=== PATIENT | male | born 1950 | race Caucasian/White ===

== ENCOUNTER 2017-08-17 05:57 | Inpatient (IN) | payer OTHER, MEDICARE ==
--- NOTE | 2017-08-17 06:06 | CPEKG ---
Heart Rate: 76 RR Interval: 789 P-R Interval: 140 QRSD Interval: 90 QT Interval: 376 QTC Interval: 423 P [place]: 15 QRS [place]: -6 T Wave [place]: 206 EKG Severity - ABNORMAL ECG - EKG Impression: SINUS RHYTHM EKG Impression: REPOL ABNRM SUGGESTS ISCHEMIA, DIFFUSE LEADS Electronically Signed By: Cece Macedo 19-Aug-2017 07:05:43
[2017-08-17 06:22] LABS: PLATELET COUNT 223 10^3/uL (150-400)
[2017-08-17] MEDS ORDERED: NITROGLYCERIN 0.4 MG BTL SL ONE (06:23)
--- NOTE | 2017-08-17 06:23 | EDPHY ---
H & P Stated Complaint: CP Time Seen by Provider: 08/17/17 06:05 HPI/ROS: HPI The patient presents with chest pain which has been present for the last 6 days which began after eating a Martha cheese steak at a movie theater. He felt as if it got stuck in his throat. He was out of town on vacation so did not seek medical care but his discomfort has been ongoing. He has throat discomfort as well as left arm aching pain which have been intermittent for the last 6 days. He did notice [place] he had dyspnea on exertion which is very unusual for him. He was unable to sleep last night very well because of this ongoing pain. The pain is worse when lying flat and improved when sitting up. His pain is present now though is mild. He has no prior history of similar. He has suffered from a stroke and is taking aspirin daily. He has hyperlipidemia.. REVIEW OF SYSTEMS Constitutional: No fever, no chills. Eyes: No discharge. ENT: No sore throat. Cardiovascular: Positive for chest pain, no palpitations. Respiratory: No cough, no shortness of breath. Gastrointestinal: No abdominal pain, no vomiting. Genitourinary: No hematuria. Musculoskeletal: No back pain. Skin: No rashes. Neurological: No headache. PMHx: Hyperlipidemia, history of CVA treated at [facility] Hx: Lives at home with his PHYSICAL General Appearance: Alert, no distress Eyes: Pupils equal and round no pallor or injection ENT, Mouth: Mucous membranes moist Respiratory: There are no retractions, lungs are clear to auscultation Cardiovascular: Regular rate and rhythm Gastrointestinal: Abdomen is soft and non-tender, no masses, bowel sounds normal Neurological: A&O, moves all extremities Skin: Warm and dry, no rashes Musculoskeletal: Neck is supple non tender Extremities: symmetrical, full range of motion Psychiatric: Patient is oriented X 3, there is no agitation Source: Patient - Personal History Current Tetanus Diphtheria and Acellular Pertussis (TDAP): Unsure - Medical/Surgical History Hx Asthma: No Hx Chronic Respiratory Disease: No Hx Diabetes: No Hx Cardiac Disease: No Hx Renal Disease: No Hx Cirrhosis: No Hx Alcoholism: No Hx HIV/AIDS: No Hx Splenectomy or Spleen Trauma: No Other PMH: CVA, hernia - Social History Smoking Status: Never smoked Constitutional: Initial Vital Signs Temperature (C) 36.6 C 08/17/17 05:59 Heart Rate 73 08/17/17 05:59 Respiratory Rate 16 08/17/17 05:59 Blood Pressure 147/95 H 08/17/17 05:59 O2 Sat (%) 96 08/17/17 05:59 O2 Delivery Mode Room Air Allergies/Adverse Reactions: No Known Allergies Allergy (Unverified 08/17/17 06:11) Home Medications: Medication Instructions Recorded Aspirin [Aspirin 325 mg (*)] 325 mg PO DAILY 08/17/17 Atorvastatin Calcium [Lipitor 40 40 mg PO DAILY 08/17/17 mg (*)] Multivitamins [Multivitamin (*)] 1 each PO DAILY 08/17/17 Medical Decision Making - Diagnostics EKG Interpretation: EKG #1: Complete interpretation has been separately recorded in the [facility] archive. Summary impression: ST segment elevation in AVR and V1 with reciprocal changes in all other leads, no old EKG for comparison EKG #2: Complete interpretation has been separately recorded in the [facility] [employer] archive. Summary impression: Improved ST segment elevations in AVR and V1 Imaging Results: Chest x-ray one view shows no infiltrate, no cardiomegaly, interpreted by me, radiology interpretation is pending. Differential Diagnosis: This is a 67-year-old male, history of hyperlipidemia and CVA who presents with 6 days of intermittent throat and left arm pain which seems to be getting progressively worse, making it difficult for him to sleep last night. He does have associated dyspnea with exertion. He has no prior history of similar pain. 6:10 a.m.- I met the patient in his room and obtained his history. EKG shows ST segment elevation in AVR and V1 which is concerning for left main disease. Because of these elevations I have paged Cardiology. I do not think we need to activate the director of laboratory operations at this time given he has had pain for the last 6 days. 6:26 a.m.- I spoke with Dr Ritchie, on-call cardiology interventionalist who recommends treatment with aspirin, beta-elmer, nitroglycerin. He does not believe the patient needs to go emergently to the director of laboratory operations. Patient's blood pressure is normal now, we will administer nitroglycerin currently. Patient has received aspirin prior to arrival. 7:00 a.m.- Dr. Ritchie came to evaluate the patient. EKG was repeated and demonstrates improved ST segment elevations currently. The patient will be admitted to the hospitalist service for further evaluation. We have started a heparin drip. Patient has metoprolol ordered. 7:25 a.m.- I discussed the case with Dr. Borden of the hospitalist service who will admit the patient. Plan is to keep the patient NPO for catheterization later today. Critical Care Time: CRITICAL CARE Critical care time spent by me, Dr. Macedo, exclusively with this patient was 30 minutes, exclusive of PA time and exclusive of procedures. The organ system at risk was cardiac and I gave antihypertensives, nitroglycerin, started a heparin drip and transfer the patient to the cardiac catheterization lab to prevent worsening of the patients condition. - Data Points Laboratory Results: Laboratory Results 08/17/17 06:06 08/17/17 06:06 Medications Given: Heparin Sodium (Porcine) (Heparin 50 Units/Ml (Premix)) 500 mls @ 0 mls/hr IV CONT NAYAN; Per Protocol PRN Reason: Protocol Stop: 02/13/18 10:59 Last Admin: 08/17/17 13:39 Dose: 500 mls Metoprolol Tartrate (Lopressor) 12.5 mg PO BID NAYAN Stop: 02/13/18 20:59 Last Admin: 08/17/17 21:01 Dose: 12.5 mg Discontinued Medications Aspirin Buffered (Aspirin Ec) 325 mg PO ONCALL ONE Stop: 08/17/17 07:52 Last Admin: 08/17/17 09:59 Dose: Not Given Chlorhexidine Gluconate (Hibiclens) 1 btl TP DAILY@2100 [facility] Stop: 08/17/17 21:01 Last Admin: 08/17/17 21:02 Dose: 1 mesha Diazepam (Valium) 5 mg PO ONCALL ONE Stop: 08/17/17 07:52 Last Admin: 08/17/17 09:59 Dose: Not Given Diphenhydramine HCl (Benadryl) 25 mg PO ONCALL ONE Stop: 08/17/17 07:52 Last Admin: 08/17/17 09:59 Dose: Not Given Famotidine (Pepcid) 20 mg PO ONCALL ONE Stop: 08/17/17 07:52 Last Admin: 08/17/17 10:00 Dose: Not Given Heparin Sodium (Porcine) (Heparin Injection) 5,000 unit IVP ONCE ONE Stop: 08/17/17 07:01 Last Admin: 08/17/17 07:08 Dose: 5,000 unit Heparin Sodium (Porcine) (Heparin Injection) 0 unit IVP ONCE ONE PRN Reason: Protocol Stop: 08/17/17 11:01 Last Admin: 08/17/17 13:26 Dose: 4,800 units Sodium Chloride (Ns) 1,000 mls @ 0 mls/hr IV ONCE ONE; Wide Open PRN Reason: Protocol Stop: 08/17/17 06:55 Last Admin: 08/17/17 07:08 Dose: 1,000 mls Metoprolol Tartrate (Lopressor Injection) 5 mg IVP EDNOW ONE Stop: 08/17/17 06:26 Last Admin: 08/17/17 07:01 Dose: Not Given Nitroglycerin (Nitrostat) 0.4 mg SL EDNOW ONE Stop: 08/17/17 06:24 Last Admin: 08/17/17 06:47 Dose: 0.4 mg Departure - Departure Disposition: To OP Cath/Surgery Clinical Impression: Acute coronary syndrome Chest pain Qualifiers: Chest pain type: unspecified Qualified Code(s): R07.9 - Chest pain, unspecified Condition: Fair
[2017-08-17] MEDS ORDERED: METOPROLOL TARTRATE 5 MG/5 ML INJ IVP ONE (06:25)
[2017-08-17] MEDS ORDERED: NS 1,000 ML IV ONE (06:54)
[2017-08-17] MEDS ORDERED: HEPARIN 10,000 UNIT/10 ML MDV (1,000 UNIT/ML) IVP ONE ×3 (07:00→11:00)
--- NOTE | 2017-08-17 07:00 | CPEKG ---
Heart Rate: 75 RR Interval: 800 P-R Interval: 140 QRSD Interval: 88 QT Interval: 388 QTC Interval: 434 P [place]: 14 QRS [place]: -17 T Wave [place]: 114 EKG Severity - OTHERWISE NORMAL ECG - EKG Impression: SINUS RHYTHM EKG Impression: BORDERLINE LEFT AXIS DEVIATION Electronically Signed By: Cece Macedo 18-Aug-2017 05:54:38
[2017-08-17] MEDS ORDERED: ONDANSETRON DISINTEGRATING 4 MG TAB PO PRN (07:27)
[2017-08-17] MEDS ORDERED: ONDANSETRON 4 MG/2 ML VIAL IVP PRN ×2 (07:27→09:08)
[2017-08-17] MEDS ORDERED: ACETAMINOPHEN 325 MG TAB PO PRN ×2 (07:27→07:51)
[2017-08-17] MEDS ORDERED: HEPARIN 10,000 UNIT/10 ML MDV (1,000 UNIT/ML) IVP PRN ×3 (07:29→11:00)
[2017-08-17] MEDS ORDERED: NITROGLYCERIN 0.4 MG BTL SL PRN ×3 (07:30→09:08)
[2017-08-17] MEDS ORDERED: HEPARIN/DEXTROSE 500 ML IV SCH ×3 (07:30→11:00)
[2017-08-17] MEDS ORDERED: LIDOCAINE 1% 300 MG/30 ML SDV ONE (07:31)
[2017-08-17] MEDS ORDERED: IOPAMIDOL (ISOVUE-370) 150 ML BTL IV ONE (07:32)
[2017-08-17] MEDS ORDERED: fentaNYL 100 MCG/2 ML INJ ONE (07:32)
[2017-08-17] MEDS ORDERED: MIDAZOLAM 2 MG/2 ML VIAL ONE (07:32)
[2017-08-17 07:40] LABS: INR 0.92 (0.83-1.16); PROTIME(PATIENT) 12.6 SEC (12.0-15.0)
--- NOTE | 2017-08-17 07:48 | PDGENHP ---
History and Physical - Chief Complaint Chest pain - History of Present Illness 67 yo M w/ HLD presents with chest pain. Patient woke up around midnight with central chest pressure. He describes this as mild to moderate with occasional radiation down his left arm. He states at times he felt like he was being strangled. He last had similar pain 1 week ago but none prior to that. He takes an ASA and statin daily for HLD. In the ED his initial ECG was concerning for ongoing ischemia. He was started on heparin and given NTG with improvement in his ECG. He is being admitted with plan for urgent cardiac cath. History Information - Allergies/Home Medication List Allergies/Adverse Reactions: No Known Allergies Allergy (Unverified 08/17/17 06:11) Home Medications: Aspirin 08/17/17 [Last Taken Unknown] Simvastatin 08/17/17 [Last Taken Unknown] I have personally reviewed and updated: family history, medical history - Past Medical History hyperlipidemia - Family History Positive for: CAD - Social History Smoking Status: Former smoker (~10 pack years) Review of Systems Review of Systems: ROS: 10pt was reviewed & negative except for what was stated in HPI & below Physical Exam Physical Exam: Temp Pulse Resp BP Pulse Ox 36.6 C 79 16 114/71 95 08/17/17 05:59 08/17/17 07:12 08/17/17 07:12 08/17/17 07:12 08/17/17 07:12 Constitutional: no apparent distress, not in pain Eyes: PERRL, EOMI Ears, Nose, Mouth, Throat: moist mucous membranes, no oral mucosal ulcers Cardiovascular: regular rate and rhythym, no murmur, rub, or gallop Respiratory: no respiratory distress, clear to auscultation Gastrointestinal: normoactive bowel sounds, soft, non-tender abdomen Skin: warm, normal color Musculoskeletal: full muscle strength, no muscle tenderness Neurologic: AAOx3, CN II-XII Intact Psychiatric: interacting appropriately, not anxious Lab Data & Imaging Review 08/17/17 06:06 08/17/17 06:06 WBC 7.99 10^3/uL (3.80-9.50) 08/17/17 06:06 RBC 4.81 10^6/uL (4.40-6.38) 08/17/17 06:06 Hgb 15.0 g/dL (13.7-17.5) 08/17/17 06:06 Hct 43.1 % (40.0-51.0) 08/17/17 06:06 MCV 89.6 fL (81.5-99.8) 08/17/17 06:06 MCH 31.2 pg (27.9-34.1) 08/17/17 06:06 MCHC 34.8 g/dL (32.4-36.7) 08/17/17 06:06 RDW 13.2 % (11.5-15.2) 08/17/17 06:06 Plt Count 223 10^3/uL (150-400) 08/17/17 06:06 MPV 9.5 fL (8.7-11.7) 08/17/17 06:06 Neut % (Auto) 58.7 % (39.3-74.2) 08/17/17 06:06 Lymph % (Auto) 24.5 % (15.0-45.0) 08/17/17 06:06 [place] % (Auto) 9.8 % (4.5-13.0) 08/17/17 06:06 Eos % (Auto) 5.6 % (0.6-7.6) 08/17/17 06:06 Baso % (Auto) 1.0 % (0.3-1.7) 08/17/17 06:06 Nucleat RBC Rel Count 0.0 % (0.0-0.2) 08/17/17 06:06 Absolute Neuts (auto) 4.69 10^3/uL (1.70-6.50) 08/17/17 06:06 Absolute Lymphs (auto) 1.96 10^3/uL (1.00-3.00) 08/17/17 06:06 Absolute Monos (auto) 0.78 10^3/uL (0.30-0.80) 08/17/17 06:06 Absolute Eos (auto) 0.45 10^3/uL (0.03-0.40) H 08/17/17 06:06 Absolute Basos (auto) 0.08 10^3/uL (0.02-0.10) 08/17/17 06:06 Absolute Nucleated RBC 0.00 10^3/uL (0-0.01) 08/17/17 06:06 Immature Gran % 0.4 % (0.0-1.1) 08/17/17 06:06 Immature Gran # 0.03 10^3/uL (0.00-0.10) 08/17/17 06:06 PT 12.6 SEC (12.0-15.0) 08/17/17 06:06 INR 0.92 (0.83-1.16) 08/17/17 06:06 APTT 28.2 SEC (23.0-38.0) 08/17/17 06:06 D-Dimer 0.28 ug/mLFEU (0.00-0.50) 08/17/17 06:06 Sodium 143 mEq/L (135-145) 08/17/17 06:06 Potassium 4.1 mEq/L (3.5-5.2) 08/17/17 06:06 Chloride 107 mEq/L (97-110) 08/17/17 06:06 Carbon Dioxide 24 mEq/l (22-31) 08/17/17 06:06 Anion Gap 12 mEq/L (8-16) 08/17/17 06:06 BUN 22 mg/dL (7-23) 08/17/17 06:06 Creatinine 0.9 mg/dL (0.7-1.3) 08/17/17 06:06 Estimated GFR > 60 08/17/17 06:06 Glucose 95 mg/dL (70-100) 08/17/17 06:06 Calcium 9.2 mg/dL (8.5-10.4) 08/17/17 06:06 Total Bilirubin 0.5 mg/dL (0.1-1.4) 08/17/17 06:06 AST 40 IU/L (17-59) 08/17/17 06:06 ALT 52 IU/L (21-72) 08/17/17 06:06 Alkaline Phosphatase 60 IU/L (38-126) 08/17/17 06:06 Troponin I 0.236 ng/mL (0.000-0.034) H 08/17/17 06:06 Total Protein 7.1 g/dL (6.3-8.2) 08/17/17 06:06 Albumin 4.0 g/dL (3.5-5.0) 08/17/17 06:06 Visualized and Interpreted Chest x-ray results: Yes Chest X-Ray results: no infiltrate Visualized and Interpreted EKG results: Yes EKG Interpretation: Positive for: other (GOGO's in V1 and AVR with STD's in lateral and inferior leads. Improved on subsequent ECG.) Assessment & Plan Assessment: 67 yo M w/ HLD presents with ACS. Plan: 1. ACS - With ST elevations in V1 and AVR on arrival in ED but not quite meeting STEMI criteria; these ST changes improved on subsequent ECG after heparin and Nitro. He is currently chest pain free. Troponin of 0.2 on arrival. - Admit to ICU - S/p ASA 325 mg and metoprolol 5 mg IV - Cardiology aware, likely to label fuser tender later today; maintain NPO - Monitor on telemetry, trend cardiac enzymes - Heparin gtt - Nitro PRN - STAT Echo performed 2. HLD - Continue statin, will need increase in intensity. Diet - NPO Code - Full Ppx - Heparin gtt Dispo - Admit as inpatient noting ACS
[2017-08-17] MEDS ORDERED: FAMOTIDINE 20 MG TAB PO ONE (07:51)
[2017-08-17] MEDS ORDERED: DIAZEPAM 5 MG TAB PO ONE (07:51)
[2017-08-17] MEDS ORDERED: diphenhydrAMINE 25 MG CAP PO ONE (07:51)
[2017-08-17] MEDS ORDERED: TEMAZEPAM 15 MG CAP PO PRN (07:51)
[2017-08-17] MEDS ORDERED: ASPIRIN EC 325 MG TAB PO ONE (07:51)
--- NOTE | 2017-08-17 07:53 | PDHPUP ---
History & Physical Update H&P update statement: This history and physical update is based on an assessment of the patient which was completed after admission or registration (within 24 hours), but prior to the surgery/procedure. H&P update: H&P reviewed & patient examined, no change in patient's condition since H&P completed
--- NOTE | 2017-08-17 07:53 | PDPROPOC ---
Sedation Plan of Care Sedation Plan of Care: mental status noted, patient educated of risks, benefits , alternatives, patient can tolerate sedation ASA Classification: ASA 2 Planned drugs: midazolam Mallampati Score: Class 2 Mallampati Reference Image: Patient passed 3-3-2 rule?: Yes
--- NOTE | 2017-08-17 08:11 | GCON ---
[f rep st] CONSULTATION CARDIOLOGY CONSULTATION CHIEF COMPLAINT: Chest pain. HISTORY OF PRESENT ILLNESS: This is a 67-year-old male with history of ischemic stroke, hyperlipidem ia, who [facility] with complaints of chest pain that has been going on intermittently for 5-6 days. The patient indicates he had a Martha sub apparently 6 days ago and aft er that started having throat pain and left arm pain. The pain would come on and off over the last 5 -6 days, but came on this morning early necessitating a trip to the emergency room. The patient was transported by his . Upon arrival to the emergency room, the patient had diffuse ST depressions and mild ST elevations in AVR and V1. After 1 sublingual nitroglycerin, the patient's ST segments no rmalized with only minimal depression in 1 and aVL. The patient actually felt much better after the nitroglycerin, and his blood pressure and heart rate have been stable. His troponin, however, did co me back at 0.29. Currently, the patient is resting quietly. Denies any active discomfort. Blood pr essure, heart rates stable. PAST MEDICAL HISTORY: Significant for ischemic stroke, hyperlipidemia. HOME MEDICATIONS: Consist of aspirin. SOCIAL HISTORY: Patient is . Occasional alcohol use. No smoking. FAMILY HISTORY: Noncontributory. REVIEW OF SYSTEMS: Patient denies any vision changes. No headache. No palpitations. No current ch est pain. No current shortness of breath. No abdominal pain. No jaw pain. No lower extremity pain . PHYSICAL EXAM: VITAL SIGNS: Patient afebrile 98.6, blood pressure 120/70, the heart rate 72, respir ations 12, sat 95% on room air. HEENT: Pupils equal, reactive to light and accommodation. Extraocu lar movements intact. CARDIOVASCULAR: Regular rate and rhythm. S1, S2. LUNGS: Clear to auscultat ion bilaterally. ABDOMEN: Soft, tender, no guarding. EXTREMITIES: No clubbing, no cyanosis, no ed giovanny. NEUROLOGIC: The patient is alert and oriented x3. LABORATORY VALUES: Currently show white cells 7.9, hemoglobin 15, platelet count of 223. INR of 0.9 2. D-dimer 0.28. Sodium 143, creatinine 0.9, troponin 0.23. ASSESSMENT/PLAN: Chest pain: At this time, the patient's symptoms have resolved. His ECG has cori lized with 1 sublingual nitroglycerin. Despite this, his troponin had been elevated at 0.29, and giv en the patient's history of ischemic stroke, his gender and age, I do feel that his pretest probabili ty is quite high for underlying coronary artery disease. I have explained this to the patient and hi s that most likely we will need to proceed with a heart catheterization to define his coronary a natomy, even though his symptoms have improved currently. I have explained the risks and possible co mplications of the heart catheterization including bleeding, stroke, and possible and the patie nt and his understand and agreed to move forward with this procedure. We will plan to do this p rocedure later this morning. We will make the patient n.p.o. Before we do the catheterization, we w ill check a cardiac echo to rule out any other vascular/structural issues that may be occurring at th is point. Further orders following clinical course. /[id number]/MODL
[2017-08-17] MEDS ORDERED: BIVALIRUDIN 250 MG/5 ML VIAL IV ONE (08:36)
[2017-08-17] MEDS ORDERED: ATROPINE SULFATE 1 MG/10 ML SYR IVP PRN (09:08)
--- NOTE | 2017-08-17 09:37 | CPIP ---
[f rep st] INVASIVE CARDIAC PROCEDURE DATE OF PROCEDURE: 08/17/2017 INDICATION FOR PROCEDURE: Non STEMI. PROCEDURES: 1. Nonselective right groin sheathogram. 2. Bilateral coronary angiography. 3. Left heart catheterization. 4. Left ventriculogram. HISTORY: Briefly, this is a 67-year-old male who presented to the emergency room with chest pain. T he patient had elevated troponins and diffuse ST depressions. Given these findings, patient consente d for a left heart catheterization. DESCRIPTION OF PROCEDURE: After informed consented, the patient was brought to [facility] cath lab technologist with the right groin prepped and draped in sterile fashion. Using lidocaine, a short 6- [place] sheath introduced into the right common femoral artery verified angiographically. Through thi s 6-[place] sheath, a JL4 catheter was advanced to the left coronary artery. Images of the left coron agustin artery revealed normal left main. The left circumflex artery was a codominant circulation which had a 90% lesion proximally. Distally, there was a marginal 1, which was robust, healthy and free of disease. The LPS appeared to be small, but healthy and free of disease. The LAD had what appeared to be 70% to 80% disease proximally. Distally, the LAD was widely patent. There was also a medium t o large diagonal artery coming off the lesion in the proximal LAD, which had what looked like ostial 70% disease, but distally the vessel appeared to be robust. After these images were obtained, the JL 4 catheter was removed. The JR4 catheter was advanced to the right coronary artery. Images of the r ight coronary artery revealed normal os prox RCA. The mid RCA had tubular 50% to 60% disease, but no focal high-grade stenosis distally. The RPDA appeared to be widely patent. After these images were obtained, the JR4 catheter was removed. A pigtail catheter was advanced to the left ventricle. LVE DP is 15 mmHg. Left ventriculogram in the VALERA projection showed an EF of 65% with no wall motion abn ormalities. No pullback gradient between the LV and the aorta. Pigtail catheter was removed over an 0.035 guidewire. Right groin was closed with a 6-[place] Angio-Seal. The patient tolerated the proc edure well with no complications. IMPRESSION: 1. Triple-vessel coronary artery disease mainly in the form of high-grade proximal codominant left c ircumflex artery, high-grade proximal left anterior descending, high-grade proximal diagonal artery w ith moderate mid right coronary artery disease. 2. Normal ejection fraction. PLAN: Given the fact the patient has triple-vessel coronary artery disease as well as anatomy suitab le for bypass with good distal targets, we will consult CT surgery for further evaluation. The patie nt is currently chest pain free. His blood pressure, heart rate are stable. Continue with medical therapy with heparin, aspirin, nitroglycerin p.r.n., and beta elmer and statin. Further orders fol lowing clinical course from CT surgery. /[id number]/MODL
--- NOTE | 2017-08-17 10:04 | PDMN ---
Medical Necessity Medical necessity: Pt meets IP criteria per MD; est los >2 mn for eval/tx of acute coronary syndrome/NSTEMI; admit to ICU for further workup/close monitoring , IV Heparin, Cardiology consult with plan for urgent cardiac cath; hx ischemic stroke, hyperlipidemia; per H&P & order 08/17/17
--- NOTE | 2017-08-17 10:16 | ECHO ---
[email or web address] [address] [address] Main: [phone] Fax: Transthoracic Echocardiogram Name: MAHSA SUÁREZ MR#: [id number] Study Date: 08/17/2017 Study Time: 07:36 AM Date of : 1950 Age: 67 year(s) Height: 177.8 cm (70 in.) Weight: 79.38 kg (175 lb.) BSA: 1.97 m2 Gender: Male Examination: Echo Indication: Chest Pain Image Quality: Contrast: Requested by: Cece Macedo BP: 105 mmHg/72 mmHg Heart Rate: Rhythm: Normal sinus rhythm Indication: Chest Pain Procedure Staff Diesel Engine Mechanic: [place] RDCS Reading Physician: Chiki Ritchie MD Requesting Provider: Conclusions: Borderline concentric LV hypertrophy. Normal global systolic LV function. EF is 64 %. There is subtle basilar to mid inferolateral hypokinesis. There is mild subtle basilar anteroseptal hypokinesis.. Trivial to mild mitral regurgitation. Trivial to mild tricuspid valve regurgitation. Measurements: Chambers Valvular Assessment AV/MV Valvular Assessment TV/PV Normal Normal Normal Name Value Range Name Value Range Name Value Range Ao Rosa (MM): 3.3 cm (2.2 cm-3.7 AV Vmax: 1.14 m/s (1 m/s-1.7 TR Vmax: 3.11 mm/s ( - ) cm) m/s) TR PGmax: 39 mmHg ( - ) IVSd (2D): 1.0 cm (0.6 cm-1.1 AV maxP mmHg ( - ) syst. PAP: 44 mmHg ( - ) cm) LVOT Vmax: 0.94 m/s (0.7 m/s-1.1 PV Vmax: 0.83 m/s (0.6 m/s-0.9 LVDd (2D): 4.7 cm (4.2 cm-5.9 m/s) m/s) cm) MV E Vmax: 0.66 m/s ( - ) PV PGmax: 3 mmHg ( - ) LVDs (2D): 3.1 cm (2.1 cm-4 MV A Vmax: 0.72 m/s ( - ) cm) MV E/A: 0.92 ( - ) LVPWd (2D): 1.1 cm (0.6 cm-1 cm) LVEF (2D): 64 (>=54 %) Continued Measurements: Chambers Valvular Assessment AV/MV Valvular Assessment TV/PV Name Value Name Value Name Value LADs Lon.1 cm MV E/E' Septal: 10.90 CVP (est.): 5 mmHg LA Area: 16.6 cm2 MV E/E' Lateral: 13.00 Patient: MAHSA SUÁREZ Study Date: 08/17/2017 Page 1 of 2 07:36 AM LA Volume: 42 ml LA Volume Index: 21.3 ml/m2 Findings: Left Ventricle: Normal size left ventricle. Borderline concentric LV hypertrophy. Normal global systolic LV function. EF is 64 %. Diastolic dysfunction is present. . There is subtle basilar to mid inferolateral hypokinesis. There is mild subtle basilar anteroseptal hypokinesis.. Right Ventricle: Normal size right ventricle. Left Atrium: The left atrium is normal in size. Right Atrium: The right atrium is normal in size. Mitral Valve: The mitral valve is normal in appearance. Trivial to mild mitral regurgitation. Aortic Valve: The aortic valve is tri-leaflet and functions normally. Tricuspid Valve: The tricuspid valve appears normal. Trivial to mild tricuspid valve regurgitation. Pulmonic Valve: The pulmonic valve is normal in appearance and function. Aorta: The aorta is normal. Pericardium: No pericardial effusion. (No Signature Object) Patient: MAHSA SUÁREZ Study Date: 08/17/2017 Page 2 of 2 07:36 AM [id number]
--- NOTE | 2017-08-17 11:11 | CPEKG ---
Heart Rate: 67 RR Interval: 896 P-R Interval: 144 QRSD Interval: 82 QT Interval: 396 QTC Interval: 418 P [place]: 0 QRS [place]: -21 T Wave [place]: 123 EKG Severity - ABNORMAL ECG - EKG Impression: SINUS RHYTHM EKG Impression: BORDERLINE LEFT AXIS DEVIATION EKG Impression: CONSIDER POSTERIOR INFARCT EKG Impression: REPOL ABNRM SUGGESTS ISCHEMIA, ANT-LAT LEADS Electronically Signed By: Toy Anna 18-Aug-2017 12:56:14
--- NOTE | 2017-08-17 11:57 | PDGENHP ---
History and Physical - Chief Complaint CAD - History of Present Illness This is a 67M who was woken by chest pain and dyspnea early this morning. He was evaluated at [facility] and found to have elevated troponin levels and EKG changes suggestive of ischemia. Coronary angiography was performed which showed 3VD and CT surgery was consulted for urgent surgical revascularization. The pt is currently comfortable without chest pain or SOB. He admits to having 2 other episodes of chest pain (one with exertion, the other at rest) over the past week. He states he had a minor stroke without residual symptoms 6 years ago due to uncontrolled lipids. He takes a daily statin and has been told his lipids are now controlled. His only past surgery was a left inguinal hernia repair. He quit smoking 20 years ago and smoked a PPD for 20 years prior to that. He has 1- 2 drinks every evening and denies illicit drug use. History Information - Allergies/Home Medication List Allergies/Adverse Reactions: No Known Allergies Allergy (Unverified 08/17/17 06:11) Home Medications: Aspirin [Aspirin 325 mg (*)] 325 mg PO DAILY 08/17/17 [Last Taken Unknown] Atorvastatin Calcium [Lipitor 40 mg (*)] 40 mg PO DAILY 08/17/17 [Last Taken Unknown] Multivitamins [Multivitamin (*)] 1 each PO DAILY 08/17/17 [Last Taken Unknown] I have personally reviewed and updated: family history, medical history, social history, surgical history - Past Medical History hyperlipidemia - Surgical History Reports: hernia repair (left inguinal) - Family History Positive for: CAD - Social History Smoking Status: Former smoker Alcohol Use: Other (1-2 drinks per night) Drug Use: None Review of Systems Review of Systems: Constitutional: Reports: no symptoms EENMT: Reports: no symptoms Cardiac: Reports: no symptoms Respiratory: Reports: no symptoms Gastrointestinal: Reports: no symptoms Genitourinary: Reports: no symptoms Muscolosketal: Reports: no symptoms Skin: Reports: no symptoms Neurological: Reports: no symptoms Physical Exam Physical Exam: Temp Pulse Resp BP Pulse Ox 36.6 C 77 16 112/74 97 08/17/17 05:59 08/17/17 07:55 08/17/17 07:55 08/17/17 07:55 08/17/17 07:55 Constitutional: no apparent distress, appears nourished, not in pain Eyes: PERRL Ears, Nose, Mouth, Throat: moist mucous membranes, hearing normal, ears appear normal, no oral mucosal ulcers Cardiovascular: regular rate and rhythym, no murmur, rub, or gallop, pulses symmetric bilaterally Respiratory: no respiratory distress, no rales or rhonchi, clear to auscultation Gastrointestinal: soft, non-tender abdomen, no palpable masses Genitourinary: no bladder fullness Skin: warm, normal color Neurologic: AAOx3, sensation intact bilaterally Psychiatric: interacting appropriately, not anxious, not encephalopathic, thought process linear Lab Data & Imaging Review 08/17/17 06:06 08/17/17 06:06 WBC 7.99 10^3/uL (3.80-9.50) 08/17/17 06:06 RBC 4.81 10^6/uL (4.40-6.38) 08/17/17 06:06 Hgb 15.0 g/dL (13.7-17.5) 08/17/17 06:06 Hct 43.1 % (40.0-51.0) 08/17/17 06:06 MCV 89.6 fL (81.5-99.8) 08/17/17 06:06 MCH 31.2 pg (27.9-34.1) 08/17/17 06:06 MCHC 34.8 g/dL (32.4-36.7) 08/17/17 06:06 RDW 13.2 % (11.5-15.2) 08/17/17 06:06 Plt Count 223 10^3/uL (150-400) 08/17/17 06:06 MPV 9.5 fL (8.7-11.7) 08/17/17 06:06 Neut % (Auto) 58.7 % (39.3-74.2) 08/17/17 06:06 Lymph % (Auto) 24.5 % (15.0-45.0) 08/17/17 06:06 [place] % (Auto) 9.8 % (4.5-13.0) 08/17/17 06:06 Eos % (Auto) 5.6 % (0.6-7.6) 08/17/17 06:06 Baso % (Auto) 1.0 % (0.3-1.7) 08/17/17 06:06 Nucleat RBC Rel Count 0.0 % (0.0-0.2) 08/17/17 06:06 Absolute Neuts (auto) 4.69 10^3/uL (1.70-6.50) 08/17/17 06:06 Absolute Lymphs (auto) 1.96 10^3/uL (1.00-3.00) 08/17/17 06:06 Absolute Monos (auto) 0.78 10^3/uL (0.30-0.80) 08/17/17 06:06 Absolute Eos (auto) 0.45 10^3/uL (0.03-0.40) H 08/17/17 06:06 Absolute Basos (auto) 0.08 10^3/uL (0.02-0.10) 08/17/17 06:06 Absolute Nucleated RBC 0.00 10^3/uL (0-0.01) 08/17/17 06:06 Immature Gran % 0.4 % (0.0-1.1) 08/17/17 06:06 Immature Gran # 0.03 10^3/uL (0.00-0.10) 08/17/17 06:06 PT 12.6 SEC (12.0-15.0) 08/17/17 06:06 INR 0.92 (0.83-1.16) 08/17/17 06:06 APTT 28.2 SEC (23.0-38.0) 08/17/17 06:06 D-Dimer 0.28 ug/mLFEU (0.00-0.50) 08/17/17 06:06 Sodium 143 mEq/L (135-145) 08/17/17 06:06 Potassium 4.1 mEq/L (3.5-5.2) 08/17/17 06:06 Chloride 107 mEq/L (97-110) 08/17/17 06:06 Carbon Dioxide 24 mEq/l (22-31) 08/17/17 06:06 Anion Gap 12 mEq/L (8-16) 08/17/17 06:06 BUN 22 mg/dL (7-23) 08/17/17 06:06 Creatinine 0.9 mg/dL (0.7-1.3) 08/17/17 06:06 Estimated GFR > 60 08/17/17 06:06 Glucose 95 mg/dL (70-100) 08/17/17 06:06 Calcium 9.2 mg/dL (8.5-10.4) 08/17/17 06:06 Total Bilirubin 0.5 mg/dL (0.1-1.4) 08/17/17 06:06 AST 40 IU/L (17-59) 08/17/17 06:06 ALT 52 IU/L (21-72) 08/17/17 06:06 Alkaline Phosphatase 60 IU/L (38-126) 08/17/17 06:06 Troponin I 0.236 ng/mL (0.000-0.034) H 08/17/17 06:06 Total Protein 7.1 g/dL (6.3-8.2) 08/17/17 06:06 Albumin 4.0 g/dL (3.5-5.0) 08/17/17 06:06 Visualized and Interpreted Chest x-ray results: Yes Chest X-Ray results: no infiltrate, normal heart size Visualized and Interpreted imaging results: Yes Interpretation: - See coronoary angiography report. - See TTE ECHO report Visualized and Interpreted EKG results: Yes EKG Interpretation: Positive for: normal sinsus rhythm, ST depression Assessment & Plan Assessment: 67M with severe CAD Plan: - CABG tomorrow at 7:[address] Hart - Consents in chart - Orders to be placed
[2017-08-17 12:04] LABS: PLATELET COUNT 206 10^3/uL (150-400)
[2017-08-17 12:12] LABS: INR 0.97 (0.83-1.16); PROTIME(PATIENT) 13.1 SEC (12.0-15.0)
--- NOTE | 2017-08-17 15:10 | HOSPPROG ---
Hospitalist Progress Note Assessment/Plan: Patient brought in with ACS, found to have 3vd and now plan is for urgent CABG to be performed in am. Medicine will sign off at this time. Please reconsult should further needs arise. Objective: Vital Signs Temp Pulse Resp BP Pulse Ox 36.6 C 70 12 119/82 H 93 08/17/17 11:58 08/17/17 11:58 08/17/17 11:58 08/17/17 11:58 08/17/17 11:58 Laboratory Results 08/17/17 11:45 08/16/17 08/17/17 08/18/17 05:59 05:59 05:59 Intake Total 1000 Output Total 550 Balance 450 PT 13.1 SEC (12.0-15.0) 08/17/17 11:45 INR 0.97 (0.83-1.16) 08/17/17 11:45 ICD10 Worksheet Patient Problems: Problems Problem Status Onset Chest pain Acute Acute coronary syndrome Acute
[2017-08-17] MEDS ORDERED: CHLORHEXIDINE GLUC HIBICLENS 118 ML BTL TP SCH (21:00)
[2017-08-17] MEDS: METOPROLOL TARTRATE 25 MG TAB PO SCH (21:01)
[2017-08-18] MEDS ORDERED: MUPIROCIN 2% 22 GM OINT NS ONE (06:00)
[2017-08-18] MEDS ORDERED: SODIUM BICARBONATE 20 MEQ, LIDOCAINE 1% 10 ML in NORMOSOL-R 1,000 ML MISC ONE (06:00)
[2017-08-18] MEDS ORDERED: MANNITOL 25% 12.5 GM/50 ML VIAL IVP ONE (06:00)
[2017-08-18] MEDS ORDERED: NOREPINEPHRINE BITARTRATE 16 MG in NS 250 ML IV ONE (06:00)
[2017-08-18] MEDS ORDERED: niCARdipine/NACL 200 ML IV SCH (06:00)
[2017-08-18] MEDS ORDERED: AMINOCAPROIC ACID 5 GM/20 ML VIAL IV ONE (06:00)
[2017-08-18] MEDS ORDERED: ceFAZolin 2 GM/SWFI 2 GM/20 ML SYR IVP ONE (06:00)
[2017-08-18] MEDS ORDERED: PAPAVERINE HCL 60 MG in NS 100 ML IV ONE (06:00)
[2017-08-18] MEDS ORDERED: PHENYLEPHRINE HCL 50 MG in NS 250 ML IV ONE (06:00)
[2017-08-18] MEDS ORDERED: CITRATE DEXTROSE SOLN 500 ML BAG MISC ONE (06:00)
[2017-08-18] MEDS ORDERED: VERAPAMIL 5 MG, NITROGLYCERIN 2.5 MG, HEPARIN 500 UNIT, SODIUM BICARBONATE 0.2 MEQ in L... MISC ONE (06:00)
[2017-08-18] MEDS ORDERED: INSULIN REGULAR HUMAN 100 UNIT in NS 100 ML IV ONE (06:00)
[2017-08-18] MEDS ORDERED: LR 1,000 ML IV ONE (06:20)
--- NOTE | 2017-08-18 06:56 | PDCARPN ---
Cardiology Progress Note Chief Complaint: CP Assessment/Plan: Assessment: CAD HTN hx of CVA Plan: 08/18/17 06:55 Plan for CABG by CTS this AM Continue CV meds post-op Further orders following clinical course Subjective: doing well Reviewed/Discussed With: multidisciplinary team Time Spent With Patient: 25 min Objective: Vital Signs (8 Hrs) Temp Pulse Resp BP Pulse Ox 08/18/17 05:02 36.7 C 74 16 119/69 95 08/17/17 23:10 36.6 C 78 16 131/85 H 94 Intake/Output (24 Hrs) 08/17/17 08/18/17 08/19/17 05:59 05:59 05:59 Intake Total 1800 Output Total 950 Balance 850 Intake: Oral (ml) 500 IV Intake (ml) 300 IV Infused (ml) 1000 Output: Urine (ml) 950 Urinal 950 Other: Weight 79.379 kg 81.6 kg Number of Voids Urinal 1 Result Diagrams: 08/17/17 11:45 08/17/17 06:06 Cardiac Labs: Cardiac Lab Results (72 Hrs) 08/17/17 11:45 Troponin I 0.649 H - Physical Exam Constitutional: healthy appearing Eyes: PERRL Ears, Nose, Mouth, Throat: moist mucous membranes Cardiovascular: regular rate and rhythm Peripheral Pulses: 1+: femoral (R), femoral (L) Respiratory: clear to auscultate bilat Gastrointestinal: normoactive bowel sounds Genitourinary: no suprapubic tenderness Skin: no rashes Musculoskeletal: no muscular tenderness Neurologic: AAOx3 Psychiatric: cooperative Lymph, Heme, Immunologic: no lymphadenopathy ICD10 Worksheet Patient Problems: Problems Problem Status Onset Acute coronary syndrome Acute Chest pain Acute
[2017-08-18] MEDS ORDERED: PROTAMINE SULFATE 50 MG/5 ML VIAL IVP ONE (07:00)
[2017-08-18] MEDS ORDERED: CALCIUM CHLORIDE 1 GM/10 ML INJ ONE ×2 (07:00→07:03)
[2017-08-18] MEDS ORDERED: MILRINONE/DEXTROSE/100 ML BAG IV ONE (07:00)
[2017-08-18] MEDS ORDERED: NA BICARBONATE 50 MEQ/50 ML VIAL ONE (07:01)
[2017-08-18] MEDS ORDERED: DOPamine/DEXTROSE/250 ML BAG IV ONE (07:01)
[2017-08-18] MEDS ORDERED: HEPARIN 10,000 UNIT/10 ML MDV (1,000 UNIT/ML) ONE ×2 (07:01→07:04)
[2017-08-18] MEDS ORDERED: ADENOSINE 6 MG/2 ML VIAL ONE (07:02)
[2017-08-18] MEDS ORDERED: niCARdipine/NACL/200 ML BAG IV ONE ×2 (07:02→14:07)
[2017-08-18] MEDS ORDERED: AMIODARONE HCL 150 MG/3 ML VIAL ONE ×2 (07:02→07:04)
[2017-08-18] MEDS ORDERED: ceFAZolin 1 GM VIAL ONE (07:02)
[2017-08-18] MEDS ORDERED: ALBUMIN 5% 250 ML BOTTLE IV ONE ×2 (07:03→11:19)
[2017-08-18] MEDS ORDERED: LIDOCAINE 2% 100 MG/5 ML SYR ONE ×2 (07:03→07:34)
[2017-08-18] MEDS ORDERED: CITRATE DEXTROSE SOLN 500 ML BAG ONE (07:04)
[2017-08-18] MEDS ORDERED: MAGNESIUM SULFATE 1 GM/2 ML VIAL ONE (07:04)
[2017-08-18] MEDS ORDERED: methylPREDNISolone SOD SUCC 1 GM/8 ML VIAL ONE (07:04)
[2017-08-18] MEDS ORDERED: SODIUM BICARBONATE 10 MEQ/10 ML SYR IVP ONE (07:05)
[2017-08-18] MEDS ORDERED: VANCOMYCIN 1 GM VIAL ONE ×2 (07:05→10:11)
[2017-08-18] MEDS ORDERED: MIDAZOLAM 2 MG/2 ML VIAL ONE ×3 (07:18→07:34)
[2017-08-18] MEDS ORDERED: MIDAZOLAM 2 MG/2 ML VIAL IVP ONE (07:20)
--- NOTE | 2017-08-18 07:24 | PDANEPAE ---
ANE History of Present Illness 3v CAD s/f CABG ANE Past Medical History - Cardiovascular History Hx Hypertension: No Hx Arrhythmias: No Hx Chest Pain: Yes Cardiovascular History Comment: 3v CAD. dyslipidemia - Pulmonary History Hx Oxygen in Use at Home: No Hx Sleep Apnea: No Sleep Apnea Screening Result - Last Documented: Positive - Endocrine History Hx Diabetes: No - Chronic Pain History Chronic Pain: No ANE Review of Systems Review of Systems: - Exercise capacity Exercise capacity: >=4 METS ANE Patient History - Allergies Allergies/Adverse Reactions: No Known Allergies Allergy (Unverified 08/17/17 06:11) - Home Medications Home medications: home medication list seen and reviewed Home Medications: Aspirin [Aspirin 325 mg (*)] 325 mg PO DAILY 08/17/17 [Last Taken Unknown] Atorvastatin Calcium [Lipitor 40 mg (*)] 40 mg PO DAILY 08/17/17 [Last Taken Unknown] Multivitamins [Multivitamin (*)] 1 each PO DAILY 08/17/17 [Last Taken Unknown] - NPO status NPO Status: no food or drink >8 hours NPO Since - Liquids (Date): 08/18/17 NPO Since - Liquids (Time): 00:00 NPO Since - Solids (Date): 08/18/17 NPO Since - Solids (Time): 00:00 - Anes Hx Anes Hx: no prior problems - Smoking Hx Smoking Status: Never smoked Marijuana use: No - Alcohol Use Alcohol Use: Rarely (1-2 drinks per night) - Family Anes Hx Family Anes Hx: none ANE Labs/Vital Signs - Labs Result Diagrams: 08/17/17 11:45 08/17/17 06:06 - Vital Signs Blood Pressure: 119/69 Heart Rate: 74 Respiratory Rate: 16 O2 Sat (%): 95 Height: 177.8 cm Weight: 81.6 kg ANE Physical Exam - Airway Neck exam: decreased ROM Mallampati Score: Class 2 Mouth exam: normal dental/mouth exam - Pulmonary Pulmonary: no respiratory distress - Cardiovascular Cardiovascular: regular rate and rhythym - ASA Status ASA Status: II ANE Anesthesia Plan Anesthesia Plan: general endotracheal anesthesia Lines/Monitors: arterial line, central line
[2017-08-18] MEDS ORDERED: DEXMEDETOMIDINE HCL 400 MCG in NS 100 ML IV SCH (07:30)
[2017-08-18] MEDS ORDERED: REMIFENTANIL HCL 1 MG VIAL ONE (07:33)
[2017-08-18] MEDS ORDERED: PROPOFOL/EMULSION 500 MG/50 ML BOTTLE IV ONE (07:34)
[2017-08-18] MEDS ORDERED: ROCURONIUM 100 MG/10 ML VIAL ONE (07:34)
[2017-08-18] MEDS ORDERED: fentaNYL 250 MCG/5 ML INJ ONE (07:34)
[2017-08-18] MEDS ORDERED: PHENYLEPHRINE HCL 100 MCG/ML SYR ONE ×2 (07:34→09:10)
[2017-08-18] MEDS ORDERED: LIDOCAINE HCL 160 MG/4 ML LTA KIT TP ONE (07:40)
[2017-08-18] MEDS ORDERED: DEXAMETHASONE 4 MG/ML VIAL ONE ×2 (08:37)
[2017-08-18] MEDS ORDERED: ONDANSETRON 4 MG/2 ML VIAL ONE (08:37)
[2017-08-18] MEDS ORDERED: ASPIRIN 81 MG CHEWABLE TAB PO SCH (09:00)
[2017-08-18] MEDS ORDERED: MAGNESIUM SULF 2 GM/WATER 50 ML BAG IV ONE (11:19)
[2017-08-18] MEDS ORDERED: GLYCOPYRROLATE 0.2 MG/1 ML VIAL ONE ×2 (11:23)
[2017-08-18] MEDS ORDERED: NEOSTIGMINE METHYLSULFATE 3 MG/3 ML SYR ONE (11:24)
--- NOTE | 2017-08-18 11:24 | ASMTCASEMG ---
Living Arrangements What is your living Answers: With Spouse arrangement? Who do you live with? Type Of Residence What kind of residence do Answers: House you live in? Discharge Plan Comments Coordination Status Comments Notes: Patient is a 67yo male who was admitted for chest pain with a plan for urgent cardiac cath. He is going for a CABGx3 this morning. No therapies ordered at this time. D/C plan TBD. CM will follow. Date Signed: 08/18/2017 11:23 AM Electronically Signed By:Elba Myrick LCSW
--- NOTE | 2017-08-18 11:37 | POSTOPPROG ---
Post Op Note Date of Operation: 08/18/17 Surgeon: Aranza Hart Secondary English Teacher: Gely Jennings PA-C Anesthesia: GET(General Endotracheal) Pre-op Diagnosis: Severe multi-vessel CAD Post-op Diagnosis: Same Procedure: CABG x 3 (CONN-LAD, SVG - OM1, SVG - D1); EVH LLE Findings: LAD 1.75, OM1 1.75, D1 1.5mm; CPB 88min; ACX 62min Inf/Abcess present in the surg proc area at time of surgery?: No EBL: 100-500 Complications: None Drains: Other (36 Fr chest tube x 2 (mediastinal and left pleural)) Specimen(s): None
[2017-08-18] MEDS ORDERED: PANTOPRAZOLE SODIUM 40 MG VIAL IVP ONE ×2 (11:54→14:00)
[2017-08-18] MEDS ORDERED: MAGNESIUM SULF 2 GM/WATER 50 ML IV ONE (11:54)
[2017-08-18] MEDS ORDERED: CEPACOL LOZENGE PO PRN (11:54)
[2017-08-18] MEDS ORDERED: POTASSIUM Cl (KCl) 50 ML IV PRN (11:54)
[2017-08-18] MEDS ORDERED: MEPERIDINE 25 MG/ML SYR IVP PRN (11:54)
[2017-08-18] MEDS ORDERED: LACTULOSE 20 GM/30 ML UDCUP PO PRN (11:54)
[2017-08-18] MEDS ORDERED: BISACODYL 10 MG SUPP PR PRN (11:54)
[2017-08-18] MEDS ORDERED: ACETAMINOPHEN 650 MG SUPP PR PRN (11:54)
[2017-08-18] MEDS ORDERED: METOCLOPRAMIDE 10 MG/2 ML VIAL IVP PRN (11:54)
[2017-08-18] MEDS ORDERED: D50W 25 GM/50 ML SYR IVP PRN (11:54)
[2017-08-18] MEDS ORDERED: MAGNESIUM HYDROXIDE 30 ML UDCUP PO PRN (11:54)
[2017-08-18] MEDS ORDERED: NOREPINEPHRINE BITARTRATE 16 MG in NS 250 ML IV PRN (11:54)
[2017-08-18] MEDS ORDERED: SODIUM CL NASAL 45 ML BTL EACHNARE PRN (11:54)
[2017-08-18] MEDS ORDERED: NS 1,000 ML IV SCH (12:00)
[2017-08-18] MEDS ORDERED: INSULIN REGULAR HUMAN 100 UNIT in NS 100 ML IV SCH (12:00)
--- NOTE | 2017-08-18 13:15 | CPEKG ---
Heart Rate: 63 RR Interval: 952 P-R Interval: 184 QRSD Interval: 84 QT Interval: 436 QTC Interval: 447 P Doddridge: 41 QRS Doddridge: 29 T Wave Doddridge: 135 EKG Severity - ABNORMAL ECG - EKG Impression: SINUS RHYTHM EKG Impression: ATRIAL PREMATURE COMPLEX EKG Impression: NONSPECIFIC T ABNORMALITIES, LATERAL LEADS Electronically Signed By: Toy Anna 19-Aug-2017 09:29:06
[2017-08-18] MEDS: ceFAZolin 2 GM/SWFI 2 GM/20 ML SYR IVP SCH ×2 (13:25→22:58)
[2017-08-18] MEDS: HYDROmorphone HCL/NS 0.5 MG/ML SYR IVP PRN ×3 (13:26→19:48)
[2017-08-18] MEDS ORDERED: ceFAZolin 2 GM/DEXTROSE 100 ML IV SCH (14:00)
--- NOTE | 2017-08-18 15:17 | GCON ---
[f rep st] CONSULTATION PULMONARY/CRITICAL CARE CONSULTATION. DATE OF CONSULTATION: 08/18/2017 REFERRING PHYSICIAN: Aranza Hart MD REASON FOR REFERRAL: Evaluation and management of hypotension and hypoxemia. HISTORY: The patient is a 67-year-old male who was in his usual state of good health when a week ago he had the onset of intermittent chest pain. This has been occurring on and off for the last severa l days. He had diffuse ST-segment depression in the emergency department. He received a sublingual nitroglycerin and his symptoms improved and the ST-segment changes resolved. His troponin was mildly elevated at 0.29. He underwent a coronary artery catheterization, where he was found to have 3 vess el disease. He was taken to the operating room this morning by Dr. Hart, who performed a three-ves zana CABG. The intraoperative course was unremarkable and the patient was extubated prior to leaving the operating room. He had minimal blood product usage and only Precedex currently. Estimated blood loss was 100-500 cc. He is currently minimally responsive but does state that he has some chest bre n but, when he takes a deep breath. PAST MEDICAL HISTORY: 1. Ischemic stroke. 2. Hyperlipidemia. MEDICATIONS AN OUTPATIENT: His only medication is aspirin. SOCIAL HISTORY: The patient is . He drinks alcohol occasionally. He does not smoke. FAMILY HISTORY: Noncontributory. REVIEW OF SYSTEMS: A complete review of systems cannot be performed due to the patient's sedation. PHYSICAL EXAMINATION: GENERAL: The patient is somnolent but arousable, falling back to sleep quickl y. VITAL SIGNS: His blood pressure is 109/44 with a MAP of 71. His heart rate is 56. His temperat ure is 35.4. His oxygen saturations are 95% on 5 liters. CVP is 12. HEENT: Normocephalic and atrau matic. No icterus. NECK: No JVD. Trachea is midline. CHEST: Clear to auscultation. CARDIAC: Reg ular rate and rhythm without murmur. There was minimal blood in his chest tubes. ABDOMEN: Soft, no ntender. Bowel sounds are present. EXTREMITIES: No clubbing, cyanosis, or edema. NEUROLOGIC: The patient is somnolent but arouses briefly. He is able to move all extremities. LABORATORY: His preoperative laboratories demonstrate a hemoglobin 14.3. His chemistry group was un remarkable. A postoperative chest x-ray shows that the endotracheal tube is 11 cm above the paula. There are some atelectatic changes in the base. Images reviewed by me. ASSESSMENT: 1. Three vessel coronary artery disease status post coronary artery bypass graft x3. The patient mar d an unremarkable intraoperative course. 2. Hypoxemia. The patient has mild hypoxemia as expected after surgery, which is currently correcte d with face mask oxygen. 3. Mild hypotension. The patient briefly had a slightly low blood pressure, but this is improved wi th ongoing fluids. RECOMMENDATIONS: 1. Continue ICU monitoring and supplemental oxygen. 2. Chem panel and CBC will be ordered. /[id number]/MODL
--- NOTE | 2017-08-18 17:46 | POSTANESTH ---
Post Anesthetic Evaluation Cardiovascular Status: Normal, Stable Respiratory Status: Normal, Stable Level of Consciousness/Mental Status: Can Participate in Eval Pain Control: Adequate, Prn Tx Ordered Nausea/Vomiting Control: Adequate, Prn Tx Ordered Complications Possibly Related to Anesthesia: None Noted
[2017-08-18] MEDS: HYDROCODONE/APAP 5/325 TAB PO PRN (19:49)
[2017-08-18] MEDS: MUPIROCIN 2% 22 GM OINT NS SCH (22:59)
[2017-08-18] MEDS: ALBUMIN 5% 250 ML IV PRN (23:18)
[2017-08-19] MEDS: HYDROCODONE/APAP 5/325 TAB PO PRN ×5 (00:14→19:44)
[2017-08-19] MEDS: HYDROmorphone HCL/NS 0.5 MG/ML SYR IVP PRN ×2 (02:37→06:52)
[2017-08-19] MEDS: ceFAZolin 2 GM/SWFI 2 GM/20 ML SYR IVP SCH ×3 (05:37→22:08)
[2017-08-19 05:54] LABS: PLATELET COUNT 168 10^3/uL (150-400)
[2017-08-19] MEDS: ALBUMIN 5% 250 ML IV PRN (07:47)
--- NOTE | 2017-08-19 08:01 | SOAPPROG ---
SOAP Progress Note Assessment/Plan: Assessment: POD#1 Urgent CABG x 3 (CONN-LAD, SV-D1, SV-OM1), EVH left thigh NSTEMI/CAD with preserved LV systolic fx - s/p CABG. Extubated in the OR. Hemodynamically stable without pressor support or pacing. No tachyarrhythmias. Actively auto-diuresing moderate volume overload. Secondary prevention with ASA , BB as allowed by BP, and statin when eating well. Acute expected blood loss anemia - Stable. No blood/blood product transfusions. No evidence bleeding. Hx remote CVA without residual deficits - Preop carotid US neg for obstructive disease. No apparent postop neuro dysfx. Secondary prevention as per CAD. Plan: Routine POD#1 orders re lines, wires, orals and mobility. Crystalloid prn CVP < 8 if SBP < 100. CTs to WS. Start metoprolol tonight if sufficient BP. Tx to PCU. 08/19/17 07:59 Subjective: Better than yest in terms of comfort. 2 walks this am well tolerated. Thirsty. No nausea. Objective: Vital Signs Temp Pulse Resp BP Pulse Ox 37.8 C 84 20 95/44 L 96 08/19/17 07:00 08/19/17 07:00 08/19/17 07:00 08/19/17 07:00 08/19/17 07:00 Laboratory Results 08/19/17 05:37 08/19/17 05:37 08/18/17 08/19/17 08/20/17 05:59 05:59 05:59 Intake Total 1800 1663 Output Total 950 2693 140 Balance 850 -1030 -140 PT 13.1 SEC (12.0-15.0) 08/17/17 11:45 INR 0.97 (0.83-1.16) 08/17/17 11:45 SB mid-upper 50s early postop, inc to 80s by mid afternoon. MAPs predominantly > 70. Excellent UOP. Min suppl O2 req. Decr CTOP, near removal criteria. CXR -> Improved insp effort. No PTX. Abundant stomach/bowel gas with LLL atelectasis. Labs as expected. Physical Exam - Physical Exam General Appearance: alert, no apparent distress Respiratory: normal breath sounds (upper airways), other (CTs x 2 y-d to pleurovac, thin serosang drainage, no air leak) Cardiac/Chest: regular rate, rhythm, other (Sternal dressing CDI. Vwires intact. ) Abdomen: normal bowel sounds, non-tender, soft Skin: warm/dry Extremities: swelling (1+ gen. LLE venotomy CDI) ICD10 Worksheet Patient Problems: Problems Problem Status Onset Acute blood loss anemia Acute Acute coronary syndrome Acute Chest pain Acute S/P CABG x 3 Acute ~08/18/17
[2017-08-19] MEDS ORDERED: ALBUMIN 5% 500 ML BOTTLE IV ONE (08:12)
[2017-08-19] MEDS ORDERED: traMADol 50 MG TAB PO PRN (08:30)
[2017-08-19] MEDS: ASPIRIN 325 MG TAB PO SCH (09:30)
[2017-08-19] MEDS: MUPIROCIN 2% 22 GM OINT NS SCH ×2 (09:30→20:01)
[2017-08-19] MEDS: PANTOPRAZOLE SODIUM 40 MG TAB PO SCH (09:30)
[2017-08-19] MEDS ORDERED: ALBUMIN 5% 500 ML IV ONE (11:00)
[2017-08-19] MEDS ORDERED: niCARdipine/NACL 200 ML IV PRN (11:54)
[2017-08-19] MEDS: SENNOSIDES/DOCUSATE SODIUM TAB PO SCH (20:00)
[2017-08-20] MEDS: HYDROCODONE/APAP 5/325 TAB PO PRN (01:59)
[2017-08-20] MEDS ORDERED: AMIODARONE LOAD DOSE(ORDER 1/3) PREMIX IV ONE (03:00)
[2017-08-20] MEDS ORDERED: AMIODARONE 6HR INFSN (ORDER 2/3) PREMIX IV ONE (03:00)
[2017-08-20] MEDS: OXYCODONE/APAP 5/325 TAB PO PRN ×2 (03:16→18:30)
--- NOTE | 2017-08-20 07:13 | GOP ---
[f rep st] OPERATIVE REPORT DATE OF OPERATION: 08/18/2017 SURGEON: Aranza Hart MD MARKETING PROGRAMS MANAGER: Gely Jennings PA-C. ANESTHESIA: General. PREOPERATIVE DIAGNOSIS: Severe multivessel coronary artery disease. POSTOPERATIVE DIAGNOSIS: Severe multivessel coronary artery disease. PROCEDURE PERFORMED: 1. Median sternotomy. 2. Endoscopic saphenous vein harvesting from the left lower extremity. 3. Epiaortic ultrasound. 4. Total cardiopulmonary bypass. 5. Coronary artery bypass grafting x3 (CONN to LAD, saphenous vein graft to OM1, saphenous vein angelito t to diagonal 1). 6. Placement of 2 temporary right ventricular epicardial pacing wires. FINDINGS: The CONN was noted to be adequate in size with good flow. LAD 1.75 mm, OM1 1.75 mm, diago nal 1 of 1.5 mm. SPECIMENS: None. ESTIMATED BLOOD LOSS: 500 mL. INDICATIONS: The patient is a 67-year-old male who presented to the emergency department after being awoken from sleep secondary to chest pain. On initial evaluation, he was found to have mildly eleva christen troponins and therefore underwent cardiac catheterization after admission and was found to have s evere multivessel coronary artery disease for which he was referred for surgical revascularization. The patient was seen preoperatively where the risks, benefits and alternatives were detailed to him, and he wished to proceed with surgical revascularization and therefore informed consent was obtained. DESCRIPTION OF PROCEDURE: The patient was brought into the operating room and placed on the operatin g room table in the supine position. General anesthesia was induced. Standard monitoring lines as w ell as Nicholson catheter were placed. The patient's chest, abdomen, and bilateral lower extremities wer e then prepped and draped in the standard surgical fashion utilizing ChloraPrep. A surgical time out was performed and administration of prophylactic antibiotics assured. A standard median sternotomy incision was made and the sternum was divided using a pneumatic saw. Th e left pleural space was entered and the left internal mammary artery was harvested from its origin t o its bifurcation using electrocautery and the no-touch technique. Concurrently, the left greater sa phenous vein was harvested using an endoscopic technique. The vein was prepared with gentle distenti on and ligation of side branches. The leg incisions were then closed in 2 layers with absorbable sut ure. The pericardium was opened and the patient was systemically heparinized. The internal mammary artery was then divided distally and the remnant was ligated using hemoclips. There was brisk flow through the mammary vessel and the pedicle was controlled with a bulldog clamp. The left side of the perica rdium was then opened to accommodate the mammary pedicle. After assuring a plaque-free cannulation a nd crossclamp zone utilizing the epiaortic ultrasound, the ascending aorta was cannulated through 2 c oncentric pursestring sutures which were secured using a Jonel tourniquet. A dual stage venous eli [place] was then inserted into the right atrial appendage through a pursestring suture and also secured u sing a Jonel tourniquet. Cardiopulmonary bypass was then initiated and the patient was passively co oled. A retrograde coronary sinus catheter was placed through a separate right atrial pursestring as well as an antegrade cardioplegia needle in the ascending aorta. The aorta was then crossclamped. Antegrade and retrograde cold blood cardioplegia were then administered and continued intermittently throughout the procedure. Diastolic arrest was achieved and the aortic needle was converted to a joy t. The heart was also topically cooled with cold normal saline. The OM1 target was then identified. An arteriotomy was made on the vessel and an end-to-side anastom osis was fashioned with a reverse saphenous vein graft using 7-0 prolene suture in running fashion. The diagonal 1 target was then identified. An arteriotomy was made on the vessel and an end-to-side anastomosis fashioned with a reverse saphenous vein graft using 7-0 prolene suture in running fashion . Finally, the LAD target was then identified and exposed. An arteriotomy was made on the vessel an d an end-to-side anastomosis fashioned with the free end of the internal mammary artery using 8-0 pro trina suture in running fashion. The bulldog clamp was then released from the TYRA and flow establishe d to the LAD. The patient was then rewarmed and the aortic crossclamp was removed. The retrograde catheter was rem gaston as well and its pursestring suture tied down. A partial occluding clamp was then placed on the ascending aorta. The heart then began to beat in normal sinus rhythm. Two aortotomies were then mad e using a knife and punch to perform the proximal anastomoses. Each proximal anastomosis was created in a side-to-end configuration using 5-0 prolene suture in running fashion to secure each vein graft to the aorta. The crossclamp was then removed. Bypass grafts de-aired and flow established to the bypass coronary arteries. Two temporary ventricular pacing wires were then placed on the right ventr icle and brought to the skin surface at the costal margin. The patient was then weaned from cardiopulmonary bypass without mechanical support. Systemic heparin ization was then reversed with protamine sulfate. The venous cannula was removed and its pursestring suture tied. The aortic cannula was then removed and its pursestring sutures were both tied. All s uture lines and surgical sites were made to be hemostatic. A 36-Ukrainian mediastinal and left pleural chest tube were placed. The sternum was then closed using stainless steel wires in a simple and figu re-of-eight fashion. The fascia at the linea was then closed using [id number] #1 Vicryl sutures . Presternal fascia, subcutaneous tissues, and subcuticular tissues were all closed in multiple laye rs with absorbable suture. Sterile dressings were applied and the chest tubes were connected to suct ion drainage. At the end of the procedure, the patient was extubated and transferred to the ICU in stable condition after having tolerated the procedure well. At the end of the operation, all sponge, needle, and instrument counts were noted to be correct. TOTAL CARDIOPULMONARY BYPASS TIME: 88 minutes. AORTIC CROSSCLAMP TIME: 62 minutes. DRAINS: 36-Ukrainian chest tube x2 (mediastinal and left pleural). COMPLICATIONS: None. /[id number]/MODL
--- NOTE | 2017-08-20 07:52 | SOAPPROG ---
SOAP Progress Note Assessment/Plan: Assessment: POD#2 Urgent CABG x 3 (CONN-LAD, SV-D1, SV-OM1), EVH left thigh NSTEMI/CAD with preserved LV systolic fx - s/p CABG. Extubated in the OR. Hemodynamically stable early postop course. Moderate volume overload. Secondary prevention with ASA, BB as allowed by BP, and statin when eating well. Postoperative atrial fibrillation - With intermittent RVR. Well tolerated. Started on amiodarone as per protocol. Beginning to have spurts of SR. Adjunctive BB as tolerated. [id number] score of 4. Antithrombotic prophylaxis with Eliquis if AF persists or recurs. Acute expected blood loss anemia - Stable. No blood/blood product transfusions. No evidence bleeding. VTE prophylaxis with SCDs. Hx remote CVA without residual deficits - Preop carotid US neg for obstructive disease. No apparent postop neuro dysfx. Secondary prevention as per CAD. Plan: IV metoprolol 5 mg x 1. Begin oral dosing later today. Transition amio to orals tomorrow. Maintain TCPWs for now. Start gentle diuresis. Cont CTs to WS. Start Eliquis tonight if still in AF. Increase activity as tolerated. 08/20/17 07:48 Subjective: Aware of heart "racing". Feels a little SOB. More comfortable with HOB elev. No CP or dizziness. Not much appetite. No voiding issues. Objective: Vital Signs Temp Pulse Resp BP Pulse Ox 36.9 C 141 H 17 102/68 90 L 08/20/17 07:33 08/20/17 07:33 08/20/17 07:33 08/20/17 07:33 08/20/17 07:33 Laboratory Results 08/19/17 05:37 08/20/17 05:55 08/19/17 08/20/17 08/21/17 05:59 05:59 05:59 Intake Total 1663 2980 Output Total 2693 1355 Balance -1030 1625 PT 13.1 SEC (12.0-15.0) 08/17/17 11:45 INR 0.97 (0.83-1.16) 08/17/17 11:45 Onset of AF ~ 2am. No hypotension or desat. A couple short spells of slowing/ SR. SBP 108 this am. Less robust UOP yest w grossly positive fluid balance. +6 kg overall. Renal fx stable. CTOP 280 last shift. Physical Exam - Physical Exam General Appearance: alert, no apparent distress Respiratory: normal breath sounds, other (CTs x 2 y-d to pleurovac, thin serosang drainage, min tidal, no air leak) Cardiac/Chest: friction rub, irregularly irregular, other (Sternal dressing CDI. Vwires intact.) Abdomen: normal bowel sounds, non-tender, soft Skin: normal color Extremities: swelling (1+ gen) ICD10 Worksheet Patient Problems: Problems Problem Status Onset Acute blood loss anemia Acute S/P CABG x 3 Acute ~08/18/17 Chest pain Acute Acute coronary syndrome Acute
[2017-08-20] MEDS ORDERED: FUROSEMIDE 20 MG/2 ML VIAL IVP ONE (08:00)
[2017-08-20] MEDS ORDERED: POTASSIUM CL 10 MEQ TAB PO ONE (08:00)
[2017-08-20] MEDS ORDERED: METOPROLOL TARTRATE 5 MG/5 ML INJ IVP ONE (08:15)
[2017-08-20] MEDS: ASPIRIN 325 MG TAB PO SCH (08:53)
[2017-08-20] MEDS: PANTOPRAZOLE SODIUM 40 MG TAB PO SCH (08:53)
[2017-08-20] MEDS: SENNOSIDES/DOCUSATE SODIUM TAB PO SCH ×2 (08:53→21:04)
[2017-08-20] MEDS: MUPIROCIN 2% 22 GM OINT NS SCH (08:54)
[2017-08-20] MEDS ORDERED: AMIODARONE 18HR INFSN (ORDER 3/3) IV ONE (09:00)
[2017-08-20] MEDS ORDERED: AMIODARONE HCL 100 ML IV PRN (11:19)
--- NOTE | 2017-08-20 11:46 | ASMTCMCOM ---
CM Note CM Note Notes: 08/20/2017 Case Management Note There are no case management d/c needs identified d/t marital status and age. Pt was independent in ADL's prior to admission. PT is recommending home. Case Management d/c poc: home independent with follow up as directed. Case Management available if needs change. Date Signed: 08/20/2017 11:45 AM Electronically Signed By:Marie Estrada RN
[2017-08-20] MEDS ORDERED: METOPROLOL TARTRATE 25 MG TAB PO PRN (12:00)
[2017-08-20] MEDS: POLYETHYLENE GLYCOL 3350 17 GM PKT PO PRN (15:10)
[2017-08-20] MEDS: FUROSEMIDE 20 MG/2 ML VIAL IVP SCH (16:44)
[2017-08-20] MEDS: AMIODARONE HCL 200 MG TAB PO SCH (21:05)
[2017-08-20] MEDS: METOPROLOL TARTRATE 25 MG TAB PO SCH (21:05)
[2017-08-21] MEDS: OXYCODONE/APAP 5/325 TAB PO PRN ×5 (00:05→20:33)
--- NOTE | 2017-08-21 06:53 | SOAPPROG ---
SOAP Progress Note Assessment/Plan: Assessment: POD#3 Urgent CABG x 3 (CONN-LAD, SV-D1, SV-OM1), EVH left thigh NSTEMI/CAD with preserved LV systolic fx - s/p CABG. Extubated in the OR. Hemodynamically stable early postop course. Actively diuresing moderate volume overload. Secondary prevention with ASA, BB as allowed by BP, and statin. Postoperative paroxysmal atrial fibrillation - Converted to SR on amio and BB. Duration < 12hrs. [id number] score of 4. Antithrombotic prophylaxis with Eliquis if recurs. Acute expected blood loss anemia - Stable. No blood/blood product transfusions. VTE prophylaxis with SCDs. Hx remote CVA without residual deficits - Preop carotid US neg for obstructive disease. No apparent postop neuro dysfx. Secondary prevention as per CAD. Plan: Vwire removed. CTs to be removed later this morning. Replete K. Cont amio 200 mg BID. Cont metoprolol 12.5 mg BID. Cont gentle diuresis. Cont increased activity as tolerated. Wean O2. Dispo - Home without services vs SNF rehab (if no sig improvement after tubes out) in 1-2 days. 08/21/17 06:52 Subjective: Doing ok. Improving appetite, IS, and ambulatory capacity and but nervous about getting in and out of bed. petite and with ortho limitations - would just as soon he recover functional independence at rehab. Objective: Vital Signs Temp Pulse Resp BP Pulse Ox 36.6 C 70 18 131/77 H 96 08/21/17 04:00 08/21/17 04:00 08/21/17 04:00 08/21/17 04:00 08/21/17 04:00 Laboratory Results 08/19/17 05:37 08/20/17 05:55 08/20/17 08/21/17 08/22/17 05:59 05:59 05:59 Intake Total 2980 1460 Output Total 1355 1755 Balance 1625 -295 PT 13.1 SEC (12.0-15.0) 08/17/17 11:45 INR 0.97 (0.83-1.16) 08/17/17 11:45 Holding SR with rates 60s-70s. Uptrending SBP. Stable suppl O2 req. Improved fluid balance on lasix. CTOP approaching removal criteria. - Pending Discharge Pending Discharge Within 48 Hours: Yes Pending Discharge Date: 08/23/17 Pending Discharge Time: 11:00 Physical Exam - Physical Exam General Appearance: alert, no apparent distress Respiratory: lungs clear (grossly), other (CTs x 2 y-d to pleurovac, thin serosang drainage, no air leak) Cardiac/Chest: regular rate, rhythm, other (Sternal dressing CDI. Vwires removed without difficulty.) Abdomen: normal bowel sounds, non-tender, soft Skin: warm/dry Extremities: swelling (trace), other (LLE venotomy CDI) ICD10 Worksheet Patient Problems: Problems Problem Status Onset Acute blood loss anemia Acute Acute coronary syndrome Acute Chest pain Acute Chronic Disease Mgmt/Transitional Care Acute Postoperative atrial fibrillation Acute S/P CABG x 3 Acute ~08/18/17
[2017-08-21] MEDS ORDERED: POTASSIUM CL 20 MEQ TAB PO ONE (08:00)
[2017-08-21] MEDS: POLYETHYLENE GLYCOL 3350 17 GM PKT PO PRN (08:26)
[2017-08-21] MEDS: FUROSEMIDE 20 MG/2 ML VIAL IVP SCH ×2 (08:27→15:52)
[2017-08-21] MEDS: ASPIRIN 325 MG TAB PO SCH (08:28)
[2017-08-21] MEDS: AMIODARONE HCL 200 MG TAB PO SCH ×2 (08:28→20:34)
[2017-08-21] MEDS: SENNOSIDES/DOCUSATE SODIUM TAB PO SCH (08:28)
[2017-08-21] MEDS: PANTOPRAZOLE SODIUM 40 MG TAB PO SCH (08:28)
[2017-08-21] MEDS: ATORVASTATIN CALCIUM 40 MG TAB PO SCH (08:28)
[2017-08-21] MEDS: METOPROLOL TARTRATE 25 MG TAB PO SCH ×2 (08:28→20:34)
[2017-08-21] MEDS: MULTIVITAMINS 1 EACH TAB PO SCH (08:28)
[2017-08-21] MEDS ORDERED: POTASSIUM CL 20 MEQ TAB PO SCH ×2 (09:00)
[2017-08-21] MEDS ORDERED: AMIODARONE HCL 200 MG TAB PO SCH (09:00)
[2017-08-21] MEDS ORDERED: SENNOSIDES/DOCUSATE SODIUM TAB PO PRN (21:00)
[2017-08-22] MEDS: OXYCODONE/APAP 5/325 TAB PO PRN ×5 (00:16→22:25)
--- NOTE | 2017-08-22 08:00 | SOAPPROG ---
SOAP Progress Note Assessment/Plan: Assessment: POD#4 Urgent CABG x 3 (CONN-LAD, SV-D1, SV-OM1), EVH left thigh NSTEMI/CAD with preserved LV systolic fx - s/p CABG. Extubated in the OR. Hemodynamically stable early postop course. Tubes and wires out. Actively diuresing moderate volume overload. Small to moderate residual left pleural effusion. Secondary prevention with ASA, statin and BB. ACEI if sufficient BP. Postoperative paroxysmal atrial fibrillation - Converted to SR on amio and BB. Duration < 12hrs. [id number] score of 4. Antithrombotic prophylaxis with Eliquis if recurs. Acute expected blood loss anemia - Stable. No blood/blood product transfusions. VTE prophylaxis with SCDs. Hx remote CVA without residual deficits - Preop carotid US neg for obstructive disease. No apparent postop neuro dysfx. Secondary prevention as per CAD. Plan: US of left chest +/- thoracentesis. Cont amio 200 mg BID. Cont metoprolol 12.5 mg BID. Relax diuresis. [employer] swallow eval. Cont increased activity as tolerated. Dispo - Home without services tomorrow. 08/22/17 07:57 Subjective: Feels great. Significantly reduced pain and improved transfers/mobility post chest tube removal. Comfortable going home tomorrow. Incidentally mentions hx of solid food passing slowly and feeling a bit stuck mid esophagus. No pain or reflux. Objective: Vital Signs Temp Pulse Resp BP Pulse Ox 36.8 C 71 19 118/78 97 08/22/17 04:00 08/22/17 04:00 08/22/17 04:00 08/22/17 04:00 08/22/17 04:00 Laboratory Results 08/22/17 06:35 08/22/17 06:35 08/21/17 08/22/17 08/23/17 05:59 05:59 05:59 Intake Total 1460 1345 Output Total 1755 700 Balance -295 645 PT 13.1 SEC (12.0-15.0) 08/17/17 11:45 INR 0.97 (0.83-1.16) 08/17/17 11:45 Holding SR. Stable SBPs. Persistent 2-3 lpm suppl O2 req. CXR notable for small to mod left pl effusion. Approaching admit wt. Labs ok. Physical Exam - Physical Exam General Appearance: alert, no apparent distress Respiratory: decreased breath sounds (subtle LLL), other (chest tube dressing CDI) Cardiac/Chest: regular rate, rhythm, other (Sternotomy and LLE venotomy CDI) Abdomen: normal bowel sounds, non-tender, soft Skin: warm/dry Extremities: swelling (trace donor leg) ICD10 Worksheet Patient Problems: Problems Problem Status Onset Acute blood loss anemia Acute Acute coronary syndrome Acute Chest pain Acute Chronic Disease Mgmt/Transitional Care Acute Postoperative atrial fibrillation Acute S/P CABG x 3 Acute ~08/18/17
[2017-08-22] MEDS: ASPIRIN 325 MG TAB PO SCH (09:31)
[2017-08-22] MEDS: POTASSIUM CL 20 MEQ TAB PO SCH (09:31)
[2017-08-22] MEDS: PANTOPRAZOLE SODIUM 40 MG TAB PO SCH (09:31)
[2017-08-22] MEDS: ATORVASTATIN CALCIUM 40 MG TAB PO SCH (09:31)
[2017-08-22] MEDS: MULTIVITAMINS 1 EACH TAB PO SCH (09:31)
[2017-08-22] MEDS: METOPROLOL TARTRATE 25 MG TAB PO SCH ×2 (09:31→22:12)
[2017-08-22] MEDS: FUROSEMIDE 40 MG TAB PO SCH (09:31)
[2017-08-22] MEDS: AMIODARONE HCL 200 MG TAB PO SCH ×2 (09:31→22:11)
--- NOTE | 2017-08-22 09:58 | ASMTCMCOM ---
CM Note CM Note Notes: 08/22/2017 Case Management Note Reviewed chart. PT recommending home. Per Gely Jennings anticipating d/c tomorrow. Case Management d/c poc: home independent with follow up as directed. Case Management available if needs change. Date Signed: 08/22/2017 09:57 AM Electronically Signed By:Marie Estrada RN
[2017-08-22] MEDS ORDERED: POTASSIUM CL 20 MEQ TAB PO ONE (12:00)
[2017-08-22] MEDS ORDERED: LIDOCAINE 1% 300 MG/30 ML SDV ONE (12:18)
[2017-08-23] MEDS: OXYCODONE/APAP 5/325 TAB PO PRN ×3 (04:38→13:11)
[2017-08-23 04:47] VITALS: RESP 18
--- NOTE | 2017-08-23 06:53 | SOAPPROG ---
SOAP Progress Note Assessment/Plan: Assessment: POD#5 Urgent CABG x 3 (CONN-LAD, SV-D1, SV-OM1), EVH left thigh HD#1 400 ml left thoracentesis NSTEMI/CAD with preserved LV systolic fx - s/p CABG. Extubated in the OR. Hemodynamically stable early postop course. Tubes and wires out. Actively diuresing moderate volume overload. Small residual left pleural effusion evacuated by thoracentesis. Secondary prevention with ASA, statin and BB. Insufficient BP for ACEI. Postoperative paroxysmal atrial fibrillation - Converted to SR w amio and BB. Duration < 12hrs & antithrombotic prophylaxis deferred. [id number] score of 4. Acute expected blood loss anemia - Stable. No blood/blood product transfusions. VTE prophylaxis with SCDs. Hx remote CVA without residual deficits - Preop carotid US neg for obstructive disease. No apparent postop neuro dysfx. Secondary prevention as per CAD. Plan: Await CXR Likely home this afternoon. Instructions re diet, meds, activity, wound care, and f/u to be reviewed in presence of . 08/23/17 06:48 Subjective: Feels well. Tolerating light activity with ease. Appetite back to normal. +BM. Satisfactory analgesia with percocet. Objective: Vital Signs Temp Pulse Resp BP Pulse Ox 36.5 C 80 18 119/71 94 08/23/17 04:00 08/23/17 04:00 08/23/17 04:00 08/23/17 04:00 08/23/17 04:00 Laboratory Results 08/22/17 06:35 08/23/17 05:55 08/22/17 08/23/17 08/24/17 05:59 05:59 05:59 Intake Total 1345 1250 Output Total 700 2050 Balance 645 -800 PT 13.1 SEC (12.0-15.0) 08/17/17 11:45 INR 0.97 (0.83-1.16) 08/17/17 11:45 Cardioresp status stable. Borderline suppl O2 req. Approaching admit wt. Physical Exam - Physical Exam General Appearance: alert, no apparent distress Respiratory: crackles (few left base, o/w CTA) Cardiac/Chest: regular rate, rhythm, other (Sternum grossly stable. Sternotomy, CT sites and LLE venotomy CDI.) Abdomen: normal bowel sounds, non-tender, soft Skin: warm/dry Extremities: other (no visible edema) ICD10 Worksheet Patient Problems: Problems Problem Status Onset Acute blood loss anemia Acute Acute coronary syndrome Acute Chest pain Acute Chronic Disease Mgmt/Transitional Care Acute Postoperative atrial fibrillation Acute S/P CABG x 3 Acute ~08/18/17
[2017-08-23] MEDS: AMIODARONE HCL 200 MG TAB PO SCH (09:02)
[2017-08-23] MEDS: METOPROLOL TARTRATE 25 MG TAB PO SCH (09:03)
[2017-08-23] MEDS: ASPIRIN 325 MG TAB PO SCH (09:03)
[2017-08-23] MEDS: POTASSIUM CL 20 MEQ TAB PO SCH (09:03)
[2017-08-23] MEDS: FUROSEMIDE 40 MG TAB PO SCH (09:03)
[2017-08-23] MEDS: ATORVASTATIN CALCIUM 40 MG TAB PO SCH (09:03)
[2017-08-23] MEDS: MULTIVITAMINS 1 EACH TAB PO SCH (09:03)
[2017-08-23] MEDS: PANTOPRAZOLE SODIUM 40 MG TAB PO SCH (09:03)
[2017-08-23] MEDS: POLYETHYLENE GLYCOL 3350 17 GM PKT PO PRN (10:20)
--- NOTE | 2017-08-23 12:21 | PDHOMEO2F ---
Home Oxygen Face to Face Home Orders: I certify that a physician or a nurse practitioner or physician's personnel assistant has had a [id number] encounter with this patient on the date of this order due to the diagnosis listed, which relates to the primary reason the patient requires home oxygen. Alternative treatments have been tried, or considered, and deemed ineffective. It is anticipated that supplemental oxygen will result in improvement with treatment. Home oxygen qualifying diagnosis: cad SpO2 on room air (%): 86 Frequency of home oxygen needed: continuous Home oxygen liters per minute: 2 Home oxygen delivery device: nasal cannula Concentrator: Yes E-tanks for mobility and back up: Yes If ordering portable O2, is the patient mobile in the home?: Yes I certify that, based on these findings, the home oxygen is medically necessary for this patient for the following length of time. Length of time home oxygen needed: 1 month
[2017-08-23 14:25] VITALS: BP 103/66; PULSE 71; TEMP 98.4; O2SAT 92
--- NOTE | 2017-08-23 16:31 | PDDCSUM ---
Discharge Summary Discharge Summary: DATE OF ADMISSION: 08/17/17 DATE OF DISCHARGE: 08/23/17 DISPOSITION: Home, self-care PRINCIPAL ADMISSION DIAGNOSES: Non ST elevation myocardial infarction PRINCIPAL DISCHARGE DIAGNOSES: 1. Multivessel coronary artery disease 2. Mild left ventricular diastolic dysfunction 3. Carotid atherosclerosis 4. Status post urgent coronary artery bypass grafting x 3 5. Acute expected blood loss anemia 6. Postoperative paroxysmal atrial fibrillation 7. Residual postoperative left pleural effusion evacuated by thoracentesis HISTORY OF PRESENT ILLNESS: 67 yo dyslipidemic male with chest pains associated with diffuse electrocardiographic ST depressions and elevated troponins admitted for medical stabilization and urgent cardiac catheterization. Found to have severe left sided coronary artery disease with basilar and anteroseptal hypokinesis, an LVEDP of 15, and an LVEF of 65%. Referred for urgent surgical revascularization. Preop imaging negative for prohibitive neurologic risk. PERTINENT PAST MEDICAL HISTORY: Hyperlipidemia, remote ischemic CVA without residual MEDICATIONS ON ADMISSION: ASA 325 mg daily, Atorvastatin 40 mg daily, MVI daily ALLERGIES/SENSITIVITIES: NKDA CONSULTANTS: Cardiology ([facility]), CV surgery ([facility]), Pulmonology/critical care ([place]) PROCEDURES/IMAGIN/29 ([facility]): Transthoracic echocardiogram 08/17 ([facility]): Left heart catheterization with selective coronary angiography and left ventriculogram. Access via right common femoral artery. 08/17 Carotid Ultrasound: mild atherosclerotic plaquing of both carotid bulbs. 08/18 ([facility]): Coronary artery bypass grafting x 3 (CONN-LAD, SV-D1, SV-OM1). Takedown left internal mammary artery. Endoscopic vein harvest left thigh. 08/22 ([facility]): Ultrasound guided left thoracentesis for 400 ml ABBREVIATED HOSPITAL COURSE BY ACTIVE PROBLEM LIST: 1. NSTEMI - Highgrade LAD and LCX disease with preserved LV systolic fx. 3V CABG without complications. Extubated in the OR. Stable postop course. Moderate volume overload actively diuresed. Small residual left pleural effusion evacuated by thoracentesis. Secondary prevention with ASA, statin, and BB. Insufficient BP for ACEI. 2. Postoperative PAF - Prompt conversion to SR w amio and BB. No recurrence. Antithrombotic prophylaxis deferred. 3. Acute expected blood loss anemia - Stable. No transfusions required. DISCHARGE CLINICAL INFORMATION: Sternum grossly stable. Sternotomy and LLE venotomy CDI, sutured, +Dermabond. HR 70s. SBP 100s-110s. SpO2 86% RA activity, correcting to > 91% on 2 lpm O2. Wt 3 kg above admission at 79.4 kilos. WBC 6.4, Hgb 9.7, HCT 28.5, Plt 191, Na 140, K 4, Cr 0.8 DISCHARGE MEDICATIONS: As on admission with the following adjustments: NEW prescriptions: 1. Amiodarone 200 mg BID thru 09/03, then 200 mg daily x 2 weeks 2. Metoprolol 12.5 mg BID 3. Lasix 20 mg daily until back to baseline weight and no swelling 4. Klor-Con 10 meq daily with lasix 5. Percocet 5/325 one-half to two tabs q 4-6 hrs prn incisional discomfort 6. Oxygen 1-2 lpm with activity or as directed by SpO2 7. Nitrostat 0.4 mg SL q 5min prn angina FOLLOW UP APPOINTMENTS: 1. CV surgery: with Dr Sanford at [facility] on 09/05 at 10:30 am. 2. Cardiology: with Dr Ritchie or Dr Stuart ('s request) at [facility] within 4-6 weeks. Appointment to be established during surgical visit. FOLLOW UP TESTING: CXR prior to surgical appointment.
== END 2017-08-23 17:17 | disposition home or self-care (01) | DRG 234 ==
LOC: F2W 08:29 → F2N 08-18 06:58 → F2W 08-19 13:45
PROVIDERS: ADMIT Surgery; ATTEND Surgery
PROC: B2111ZZ Fluoroscopy of Multiple Coronary Arteries using Low Osmolar Contrast (ICD-10-PCS; 2017-08-17)
PROC: 4A023N7 Measurement of Cardiac Sampling and Pressure, Left Heart, Percutaneous Approach (ICD-10-PCS; 2017-08-17)
PROC: B2151ZZ Fluoroscopy of Left Heart using Low Osmolar Contrast (ICD-10-PCS; 2017-08-17)
PROC: 5A1221Z Performance of Cardiac Output, Continuous (ICD-10-PCS; principal; 2017-08-18 07:30)
PROC: 02100Z9 Bypass Coronary Artery, One Artery from Left Internal Mammary, Open Approach (ICD-10-PCS; principal; 2017-08-18 07:30)
PROC: 06BQ4ZZ Excision of Left Saphenous Vein, Percutaneous Endoscopic Approach (ICD-10-PCS; principal; 2017-08-18 07:30)
PROC: 021109W Bypass Coronary Artery, Two Arteries from Aorta with Autologous Venous Tissue, Open Approach (ICD-10-PCS; principal; 2017-08-18 07:30)
PROC: 0W9B3ZZ Drainage of Left Pleural Cavity, Percutaneous Approach (ICD-10-PCS; 2017-08-22)
DX: I21.4 Non-ST elevation (NSTEMI) myocardial infarction (principal); I25.10 Atherosclerotic heart disease of native coronary artery without angina pectoris; D62 Acute posthemorrhagic anemia; I48.91 Unspecified atrial fibrillation; J90 Pleural effusion, not elsewhere classified; E78.5 Hyperlipidemia, unspecified; Z87.891 Personal history of nicotine dependence; Z86.73 Personal history of transient ischemic attack (TIA), and cerebral infarction without residual deficits; Z79.82 Long term (current) use of aspirin
CPT/HCPCS: 82947-QW; 85520-90; 92610-GN; 96374; 97116-GP; 97161-GP; 97165-GO; 97530-GO; 97530-GP; 97535-GO; C1760; G8978-GP-CJ; G8979-GP-CI; G8980-GP-CI; G8987-GO-CI; G8988-GO-CI; G8989-GO-CI; G8996-GN-CH; G8997-GN-CH; G8998-GN-CH; J0153; J0282; J0583; J0690; J1100; J1170; J1265; J1644; J1815; J1940; J2001; J2150; J2250; J2260; J2370; J2405; J2440; J2704; J2710; J2720; J2930; J3010; J3370; J3475; J7060; P9041; Q9967

== ENCOUNTER → 2017-09-05 | Outpatient (CLI) | payer OTHER, MEDICARE | LOC: FIMAGING 10:37 | PROVIDERS: ATTEND Thoracic Surgery (Cardiothoracic Vascular Surgery) | DX: J98.11 Atelectasis (principal); Z95.1 Presence of aortocoronary bypass graft; J90 Pleural effusion, not elsewhere classified ==

== ENCOUNTER → 2017-11-20 | Outpatient (CLI) | payer OTHER, MEDICARE | LOC: BHFA 09:15 | PROVIDERS: ATTEND Internal Medicine Interventional Cardiology | DX: I25.10 Atherosclerotic heart disease of native coronary artery without angina pectoris (principal); E78.5 Hyperlipidemia, unspecified; Z95.1 Presence of aortocoronary bypass graft ==